=== PATIENT | female | born 1950 | race Caucasian/White ===

== ENCOUNTER 2024-01-09 08:21 | Inpatient (IN) | payer MEDICARE ==
[2024-01-09] MEDS ORDERED: Sodium Chloride 0.9% 10 ML Syringe FLUSH PRN (08:23)
[2024-01-09 08:28] LABS: BASOPHILS ABSOLUTE AUTO 0.04 10^3/uL (0.00-0.10); BASOPHILS PERCENT AUTO 0.4 % (0.0-1.0); EOSINOPHILS ABSOLUTE AUTO 0.22 10^3/uL (0.10-0.30); EOSINOPHILS PERCENT AUTO 2.2 % (1.0-3.0); HEMATOCRIT 46.5 % (37.0-47.0); HEMOGLOBIN 15.2 g/dL (12.0-16.0); IMMATURE GRAN ABSOLUTE AUTO 0.02 10^3/uL (0.00-0.50); IMMATURE GRAN PERCENT AUTO 0.2 % (0.0-5.0); LYMPHOCYTES ABSOLUTE AUTO 1.91 10^3/uL (1.00-4.00); LYMPHOCYTES PERCENT AUTO 19.3 % (20.0-40.0); MEAN CORPUSCULAR HEMOGLOBIN 30.8 pg (27.0-31.0); MEAN CORPUSCULAR HGB CONC 32.7 g/dL (32.0-36.0); MEAN CORPUSCULAR VOLUME 94.1 fL (82.0-92.0); MEAN PLATELET VOLUME 9.2 fL (7.4-10.4); MONOCYTES ABSOLUTE AUTO 0.72 10^3/uL (0.10-0.80); MONOCYTES PERCENT AUTO 7.3 % (2.0-8.0); NEUTROPHILS ABSOLUTE AUTO 6.99 10^3/uL (2.50-7.00); NEUTROPHILS PERCENT AUTO 70.6 % (50.0-70.0); PLATELET COUNT,PLT 215 10^3/uL (150-400); RED BLOOD CELL COUNT 4.94 10^6/uL (3.80-5.50); RED CELL DISTRIBUTION WIDTH 13.4 % (11.5-14.5)
[2024-01-09] MEDS: Albuterol/Ipratropium 3.0-0.5 MG/3 ML Neb Soln NEB ONE (08:32)
[2024-01-09 08:42] LABS: ALANINE AMINOTRANSFERASE,ALT 27 U/L (14-63); ALBUMIN 3.66 g/dL (3.40-5.00); ALKALINE PHOSPHATASE 112 U/L (46-116); ANION GAP 11.9 mmol/L (5-15); ASPARTATE AMNIOTRANSFERASE,AST 25 U/L (15-37); BILIRUBIN TOTAL 0.4 mg/dL (0.2-1.0); BLOOD UREA NITROGEN,BUN 36 mg/dL (7-18); CALCIUM 9.3 mg/dL (8.7-10.3); CARBON DIOXIDE,CO2 32.1 mmol/L (21.0-32.0); CHLORIDE,CL 103 mmol/L (98-107); CREATININE 0.87 mg/dL (0.51-1.17); GLUCOSE RANDOM 157 mg/dL (70-140); PROTEIN TOTAL,TP 7.9 g/dL (6.4-8.2); SODIUM,NA 143 mmol/L (136-145)
[2024-01-09 08:43] LABS: ESTIMATED GFR 71 mL/min (>=60)
[2024-01-09 08:44] LABS: LACTIC ACID 1.4 mmol/L (0.4-2.0)
[2024-01-09] MEDS: methylPREDNISolone Sodium Succinate 125 MG/2 ML SDV IVPUSH ONE (08:50)
[2024-01-09] MEDS: Albuterol/Ipratropium 3.0-0.5 MG/3 ML Neb Soln ONE (09:02)
[2024-01-09] MEDS: Magnesium Sulfate/Water 2 GM in Premix Bag 1 BAG IV ONE (09:02)
[2024-01-09] MEDS: Sodium Chloride 0.9% 1,000 ML IV ONE (09:02)
[2024-01-09 09:10] LABS: B-TYPE NATRIURETIC PEPTIDE,BNP 143 pg/mL (0-100)
[2024-01-09 09:14] LABS: INFLUENZA A NAA NEGATIVE (NEGATIVE); INFLUENZA B NAA NEGATIVE (NEGATIVE); RESPIRATORY SYNCYTIAL VIR NAA NEGATIVE (NEGATIVE)
[2024-01-09 09:15] LABS: CORONAVIRUS COVID-19 NAA NEGATIVE (NEGATIVE)
[2024-01-09] MEDS: Iopamidol 755 Mg/ML 100 ML Bottle IV ONE (09:32)
[2024-01-09] MEDS: Sodium Chloride 0.9% 100 ML IV SCH (09:33)
[2024-01-09] MEDS: Acetaminophen 500 MG Tab PO ONE (10:06)
[2024-01-09] MEDS: Acetaminophen 500 MG Tab ONE (10:08)
[2024-01-09] MEDS ORDERED: Ondansetron 4 MG/2 ML SDV IV PRN (13:09)
[2024-01-09] MEDS ORDERED: Albuterol/Ipratropium 3.0-0.5 MG/3 ML Neb Soln NEB PRN (13:09)
[2024-01-09] MEDS ORDERED: Diclofenac Sodium 1% Gel 100 GM Tube TOP PRN (13:14)
[2024-01-09] MEDS: Acetaminophen 325 MG Tab PO PRN (13:52)
[2024-01-09] MEDS: Albuterol/Ipratropium 3.0-0.5 MG/3 ML Neb Soln NEB SCH (16:59)
[2024-01-09] MEDS: Carvedilol 12.5 MG Tab PO SCH (22:07)
[2024-01-10 08:29] LABS: MEAN CORPUSCULAR HGB CONC 33.3 g/dL (32.0-36.0); MEAN CORPUSCULAR VOLUME 93.2 fL (82.0-92.0); MEAN PLATELET VOLUME 9.1 fL (7.4-10.4); PLATELET COUNT,PLT 186 10^3/uL (150-400); RED BLOOD CELL COUNT 4.29 10^6/uL (3.80-5.50); RED CELL DISTRIBUTION WIDTH 13.6 % (11.5-14.5); WHITE BLOOD CELL COUNT,WBC 10.83 10^3/uL (5.00-10.00)
[2024-01-10] MEDS: Enoxaparin 40 MG/0.4 ML Syringe SUBCUT SCH (08:29)
[2024-01-10] MEDS: methylPREDNISolone Sodium Succinate 40 MG/1 ML SDV IVPUSH SCH (08:29)
[2024-01-10] MEDS: amLODIPine 5 MG Tab PO SCH (08:30)
[2024-01-10] MEDS: Aspirin 325 MG Tab.EC PO SCH (08:30)
[2024-01-10] MEDS: Losartan 50 MG Tab PO SCH (08:30)
[2024-01-10] MEDS: Sertraline 50 MG Tab PO SCH (08:32)
[2024-01-10] MEDS: Rosuvastatin 10 MG Tab PO SCH (08:32)
[2024-01-10 09:01] LABS: ALBUMIN 2.95 g/dL (3.40-5.00); ANION GAP 12.2 mmol/L (5-15); BILIRUBIN TOTAL 0.5 mg/dL (0.2-1.0); CALCIUM 8.9 mg/dL (8.7-10.3); CARBON DIOXIDE,CO2 29.1 mmol/L (21.0-32.0); CREATININE 0.84 mg/dL (0.51-1.17); EST CRCL DRUG DOSING (CG) 47.88 mL/min; POTASSIUM,K 4.3 mmol/L (3.5-5.1); PROTEIN TOTAL,TP 6.6 g/dL (6.4-8.2)
[2024-01-10 09:21] LABS: HEMOGLOBIN 13.3 g/dL (12.0-16.0)
[2024-01-11 08:09] LABS: HEMATOCRIT 38.1 % (37.0-47.0); HEMOGLOBIN 12.7 g/dL (12.0-16.0); MEAN CORPUSCULAR HGB CONC 33.3 g/dL (32.0-36.0); MEAN CORPUSCULAR VOLUME 92.9 fL (82.0-92.0); MEAN PLATELET VOLUME 9.4 fL (7.4-10.4); PLATELET COUNT,PLT 187 10^3/uL (150-400); RED CELL DISTRIBUTION WIDTH 13.8 % (11.5-14.5); WHITE BLOOD CELL COUNT,WBC 10.27 10^3/uL (5.00-10.00)
[2024-01-11 08:41] LABS: ALBUMIN 2.89 g/dL (3.40-5.00); BILIRUBIN TOTAL 0.4 mg/dL (0.2-1.0); CARBON DIOXIDE,CO2 28.3 mmol/L (21.0-32.0); CREATININE 0.75 mg/dL (0.51-1.17); EST CRCL DRUG DOSING (CG) 53.62 mL/min; POTASSIUM,K 4.3 mmol/L (3.5-5.1); PROTEIN TOTAL,TP 6.5 g/dL (6.4-8.2)
[2024-01-11] MEDS: predniSONE 20 MG Tab PO ONE (09:57)
[2024-01-11 10:24] LABS: CALCIUM 8.8 mg/dL (8.7-10.3)
== END 2024-01-11 10:38 | disposition home or self-care (01) | DRG 189 ==
LOC: KA.ED 08:21 → KA.MS 10:22 → KA.ED 10:45 → KA.MS 10:45 → UNDOADMIN 10:45 → UNDODISIN 01-11 10:38
PROVIDERS: ADMIT Physician Assistant Medical; ATTEND Internal Medicine
DX: J96.01 Acute respiratory failure with hypoxia (principal); J44.1 Chronic obstructive pulmonary disease with (acute) exacerbation; I10 Essential (primary) hypertension; E78.5 Hyperlipidemia, unspecified; Z88.8 Allergy status to other drugs, medicaments and biological substances; E78.00 Pure hypercholesterolemia, unspecified; G89.29 Other chronic pain; M54.9 Dorsalgia, unspecified; F17.210 Nicotine dependence, cigarettes, uncomplicated; Z88.1 Allergy status to other antibiotic agents; Z86.16 Personal history of COVID-19; Z79.82 Long term (current) use of aspirin; Z79.899 Other long term (current) drug therapy
CPT/HCPCS: 0241U; 36415; 71045; 71275; 80053; 83605; 83880; 84484; 85025; 85027; 85379; 93005; 93010; 94640; 99223-GT; 99233-GT; 99239-GT; 99284; A9270-GY; J1650; J2920; J2930; J3475; J3490; J7030; J7512; J7620-GY; Q3014; Q9967

== ENCOUNTER 2025-02-27 17:00 | Emergency (ER) | payer MEDICARE ==
[2025-02-27 17:38] LABS: BASOPHILS ABSOLUTE AUTO 0.02 10^3/uL (0.00-0.10); BASOPHILS PERCENT AUTO 0.3 % (0.0-1.0); EOSINOPHILS ABSOLUTE AUTO 0.13 10^3/uL (0.10-0.30); EOSINOPHILS PERCENT AUTO 2.0 % (1.0-3.0); IMMATURE GRAN ABSOLUTE AUTO 0.00 10^3/uL (0.00-0.04); IMMATURE GRAN PERCENT AUTO 0.0 % (0.0-0.4); LYMPHOCYTES ABSOLUTE AUTO 1.31 10^3/uL (1.00-4.00); LYMPHOCYTES PERCENT AUTO 20.6 % (20.0-40.0); MEAN PLATELET VOLUME 9.1 fL (7.4-10.4); MONOCYTES ABSOLUTE AUTO 0.61 10^3/uL (0.10-0.80); MONOCYTES PERCENT AUTO 9.6 % (2.0-8.0); NEUTROPHILS ABSOLUTE AUTO 4.30 10^3/uL (2.50-7.00); NEUTROPHILS PERCENT AUTO 67.5 % (50.0-70.0); PLATELET COUNT,PLT 216 10^3/uL (150-400); RED BLOOD CELL COUNT 4.89 10^6/uL (3.80-5.50); RED CELL DISTRIBUTION WIDTH 15.5 % (11.5-14.5); WHITE BLOOD CELL COUNT,WBC 6.37 10^3/uL (5.00-10.00)
[2025-02-27 18:04] LABS: BLOOD UREA NITROGEN,BUN 26.0 mg/dL (7-18); CARBON DIOXIDE,CO2 30.0 mmol/L (21.0-32.0); CHLORIDE,CL 96.0 mmol/L (98-107); CREATININE 0.97 mg/dL (0.51-1.17); EST CRCL DRUG DOSING (CG) 40.85 mL/min; ESTIMATED GFR 62.0 mL/min (>=60); GLUCOSE RANDOM 99.0 mg/dL (70-140); POTASSIUM,K 4.1 mmol/L (3.5-5.1); SODIUM,NA 134.0 mmol/L (136-145)
== END 2025-02-27 18:40 | disposition home or self-care (01) ==
LOC: KA.ED 17:00
DX: M67.431 Ganglion, right wrist (principal); R79.89 Other specified abnormal findings of blood chemistry; I10 Essential (primary) hypertension; E78.00 Pure hypercholesterolemia, unspecified; J44.9 Chronic obstructive pulmonary disease, unspecified; F17.210 Nicotine dependence, cigarettes, uncomplicated; Z88.1 Allergy status to other antibiotic agents; Z88.8 Allergy status to other drugs, medicaments and biological substances; Z79.51 Long term (current) use of inhaled steroids; Z79.899 Other long term (current) drug therapy; Z86.16 Personal history of COVID-19
CPT/HCPCS: 36415; 73090-RT; 80048; 85025; 85379; 99283